=== PATIENT | female | born 1940 | race Caucasian/White ===

== ENCOUNTER 2019-07-14 06:37 | Day surgery (SDC) | payer MEDICARE ==
[~2019-07-14] VITALS: Ht 170.2 cm; Wt 68.7 kg
[2019-07-14] VITALS (13 sets, daily range): BP systolic 156–189; BP diastolic 66–81
[~2019-07-14 06:37] MED LIST: ASPI-1265 PO; ATOR80TA PO; CALC-499 PO; CLOP75TA15 PO; FLUO20CA39 PO; FURO40TA4 PO; MEMA10TA PO; OMEP-297 PO; VALS320T2 PO
[2019-07-14] MEDS ORDERED: DOXA4TAB2 PO (07:09)
[2019-07-14] MEDS ORDERED: [UNRECOGNIZED DRUG - OTHER] PO (07:10)
[2019-07-14] MEDS ORDERED: normal saline 1000ml 1,000 ML IV SCH ×2 (07:20→09:59)
[2019-07-14 07:57] LABS: BASOPHILS % (AUTO) 0.5 % (0-1); EOSINOPHILS # (AUTO) 0.3 X10'3 (0-0.9); EOSINOPHILS % (AUTO) 3.7 % (0-6); HEMATOCRIT 38.3 % (35.0-45.0); HEMOGLOBIN 13.1 g/dl (12.0-16.0); LYMPHOCYTES # (AUTO) 1.2 X10'3 (1.1-4.8); LYMPHOCYTES % (AUTO) 15.8 % (21-51); MEAN CORPUSCULAR HEMOGLOBIN 32.6 PG (27.0-31.0); MEAN CORPUSCULAR HGB CONC 34.1 g/dL (33.0-36.5); MEAN CORPUSCULAR VOLUME 95.4 FL (78-98); MEAN PLATELET VOLUME 7.6 FL (7.4-10.4); MONOCYTES # (AUTO) 0.5 X10'3 (0-0.9); MONOCYTES % (AUTO) 6.3 % (2-12); NEUTROPHILS # (AUTO) 5.7 X10'3 (1.8-7.7); NEUTROPHILS % (AUTO) 73.7 % (42-75); PLATELET COUNT 195 X10'3 (140-440); RED BLOOD COUNT 4.01 X10'6 (4.20-5.60); RED CELL DISTRIBUTION WIDTH 14.4 % (11.5-14.5); WHITE BLOOD COUNT 7.8 X10'3 (4.5-11.0)
[2019-07-14 08:13] LABS: ALANINE AMINOTRANSFERASE 26 U/L (12-78); ALBUMIN 3.5 G/DL (3.4-5.0); ALBUMIN/GLOBULIN RATIO 1.2 (1.1-1.5); ALKALINE PHOSPHATASE 93 IU/L (46-116); ANION GAP 9 (8-16); ASPARTATE AMINO TRANSFERASE 24 U/L (10-37); BILIRUBIN,TOTAL 0.6 MG/DL (0.1-1.0); BLOOD UREA NITROGEN 21 MG/DL (7-18); BUN/CREATININE RATIO 18.4 (6.6-38.0); CALCIUM 10.2 MG/DL (8.5-10.1); CHLORIDE 108 MMOL/L (99-107); CREATININE 1.14 MG/DL (0.40-0.90); GLUCOSE 97 MG/DL (70-104); POTASSIUM 3.3 MMOL/L (3.5-5.1); SODIUM 145 MMOL/L (135-145); TOTAL CARBON DIOXIDE 27.8 MMOL/L (24-32); TOTAL PROTEIN 6.5 G/DL (6.4-8.2); eGFR 46 ML/MIN
[2019-07-14] MEDS ORDERED: heparin 1,000 UNITS/NS 500ml 500 ML ICATH ONE (08:15)
[2019-07-14] MEDS ORDERED: fentaNYL/PF 50MCG/1 ML 2ML syringe IV PRN (08:15)
[2019-07-14] MEDS ORDERED: midazolam 2 mg/2 ml injection IV PRN (08:15)
[2019-07-14] MEDS ORDERED: LIDOcaine 1%/PF 5ML 10 MG/ML VIAL SQ ONE (08:15)
[2019-07-14] MEDS ORDERED: heparin 1,000 UNITS/NS 500ml 500 ML ONE (08:18)
[2019-07-14] MEDS ORDERED: fentaNYL/PF 50MCG/1 ML 2ML syringe ONE ×2 (08:18→08:45)
[2019-07-14] MEDS ORDERED: midazolam 2 mg/2 ml injection ONE ×2 (08:18→08:45)
[2019-07-14] MEDS ORDERED: LIDOcaine 1%/PF 5ML 10 MG/ML VIAL ONE (08:18)
[2019-07-14] MEDS ORDERED: iohexol 300mg/ml 100ml inj. ONE (08:19)
[2019-07-14] MEDS ORDERED: heparin 1,000unit/ml 10ml vial 10 ML ONE (09:05)
[2019-07-14] MEDS ORDERED: losartan 50mg tablet PO ONE (13:05)
[2019-07-15] MEDS ORDERED: losartan 50mg tablet PO SCH (08:00)
== END 2019-07-14 16:00 | disposition home or self-care (01) ==
LOC: SSTAY O 06:37
PROVIDERS: ATTEND Radiology Diagnostic Radiology
DX: K55.1 Chronic vascular disorders of intestine (principal); I10 Essential (primary) hypertension; Z86.73 Personal history of transient ischemic attack (TIA), and cerebral infarction without residual deficits; Z85.828 Personal history of other malignant neoplasm of skin; Z90.710 Acquired absence of both cervix and uterus; Z90.49 Acquired absence of other specified parts of digestive tract; Z95.5 Presence of coronary angioplasty implant and graft; Z98.1 Arthrodesis status; Z87.891 Personal history of nicotine dependence; Z88.1 Allergy status to other antibiotic agents; Z91.09 Other allergy status, other than to drugs and biological substances; Z88.5 Allergy status to narcotic agent; Z91.040 Latex allergy status; Z79.01 Long term (current) use of anticoagulants; Z79.899 Other long term (current) drug therapy
CPT/HCPCS: 36245; 36415; 37236; 75726; 80053; 85025; 85610; 99152; 99153; C1725; C1769; C1876; C1894; J1644; J2250; J3010; J7030; Q9967

== ENCOUNTER 2019-08-26 11:33 | Inpatient (IN) | payer MEDICARE ==
[2019-08-17 17:02] LABS: BASOPHILS # (AUTO) 0.1 X10'3 (0-0.2); BASOPHILS % (AUTO) 0.8 % (0-1); EOSINOPHILS # (AUTO) 0.3 X10'3 (0-0.9); EOSINOPHILS % (AUTO) 3.5 % (0-6); LYMPHOCYTES # (AUTO) 1.9 X10'3 (1.1-4.8); LYMPHOCYTES % (AUTO) 23.9 % (21-51); MEAN CORPUSCULAR HEMOGLOBIN 32.9 PG (27.0-31.0); MEAN CORPUSCULAR HGB CONC 33.9 g/dL (33.0-36.5); MEAN CORPUSCULAR VOLUME 97.2 FL (78-98); MEAN PLATELET VOLUME 8.4 FL (7.4-10.4); MONOCYTES # (AUTO) 0.6 X10'3 (0-0.9); NEUTROPHILS # (AUTO) 5.3 X10'3 (1.8-7.7); NEUTROPHILS % (AUTO) 64.8 % (42-75); PRE OP HEMATOCRIT 37.7 % (35.0-45.0); PRE OP HEMOGLOBIN 12.8 g/dL (12.0-16.0); PRE OP PLATELET COUNT 195 X10'3 (140-440); RED BLOOD COUNT 3.88 X10'6 (4.20-5.60)
[2019-08-17 17:11] LABS: PRE OP INR 1.1 INR; PRE OP PROTIME 10.9 SECONDS (9.0-12.0)
[2019-08-17 17:13] LABS: ALBUMIN 3.5 G/DL (3.4-5.0); ALBUMIN/GLOBULIN RATIO 1.2 (1.1-1.5); ALKALINE PHOSPHATASE 107 IU/L (46-116); BLOOD UREA NITROGEN 24 MG/DL (7-18); BUN/CREATININE RATIO 17.1 (6.6-38.0); CALCIUM 9.9 MG/DL (8.5-10.1); CHLORIDE 110 MMOL/L (99-107); PRE OP ALT 26 U/L (30-65); PRE OP ANION GAP 7 (8-16); PRE OP AST 19 U/L (10-37); PRE OP BILIRUB, TOTAL 0.4 MG/DL (0.0-1.0); PRE OP GLUCOSE 105 MG/DL (70-104); PRE OP POTASSIUM 3.5 MMOL/L (3.4-5.1); PRE OP SODIUM 144 MMOL/L (135-145); TOTAL CARBON DIOXIDE 27.3 MMOL/L (24-32); TOTAL PROTEIN 6.4 G/DL (6.4-8.2); eGFR 36 ML/MIN
[2019-08-17 17:38] LABS: CLARITY,URINE SLIGHTLY CLOUDY (Clear); COLOR,URINE YELLOW (Yellow); GLUCOSE, URINE NEGATIVE (Neg); KETONES,URINE NEGATIVE (Neg); LEUKOCYTE ESTERASE ,URINE NEGATIVE (Neg); NITRITES, URINE NEGATIVE (Neg); OCCULT BLOOD,URINE NEGATIVE (Neg); PH,URINE 5.5 (4.8-8.0); PROTEIN,URINE 30 mg/dl (Neg); UROBILINOGEN,URINE 0.2 E.U/dL (0.2-1.0)
[2019-08-17 17:46] LABS: UA COLLECTION TYPE NON-SPECIFIED
[2019-08-17 17:47] LABS: MUCUS STRANDS MODERATE /LPF (Neg); SQUAMOUS EPITHELIAL CELL,UR FEW /LPF (FEW)
[2019-08-17 17:48] LABS: BACTERIA,URINE 1+ /HPF (Neg); CAL OXALATE CRYSTALS 4+ /HPF (NEGATIVE); RBC,URINE 0-2 /HPF (0-2); WBC,URINE 0-4 /HPF (0-4)
[~2019-08-26] VITALS: Ht 170.2 cm; Wt 66.1 kg
[2019-08-26] VITALS (10 sets, daily range): BP systolic 137–162; BP diastolic 72–92
[~2019-08-26 11:33] MED LIST changes: +AMLO5TAB PO; -CALC-499 PO; +DOXA4TAB2 PO; +DULO20CA50 PO; -FLUO20CA39 PO; +LACT1CAP65 PO; +LOSA100T57 PO; -OMEP-297 PO; +OMEP20CA15 PO; +POTA10TA PO; +RIVA4.5C5 PO; -VALS320T2 PO; +VANCOMYCIN INJ 1000 MG in NORMAL SALINE 250ml IV.SOLN IV ONE; +cefazolin/dext.iso 2gm/100ml 100 ML IV ONE; +famotidine 10mg tablet PO ONE; +ringers solution, lacted 1,000 ML IV SCH
[2019-08-26] MEDS ORDERED: dexamethasone sod phosphate 10mg/ml inj ONE (12:56)
[2019-08-26] MEDS ORDERED: sevoflurane 250ml liquid IH ONE (12:56)
[2019-08-26] MEDS ORDERED: fentaNYL/PF 50MCG/1 ML 2ML syringe ONE (13:04)
[2019-08-26] MEDS ORDERED: propofol inj 20 ML IV ONE (13:11)
[2019-08-26] MEDS ORDERED: LIDOcaine 2% (20mg/ml) 5ml vial ONE (13:11)
[2019-08-26] MEDS ORDERED: ondansetron/PF 4mg/2ml inj ONE (13:11)
[2019-08-26] MEDS ORDERED: midazolam 2 mg/2 ml injection ONE (13:11)
[2019-08-26] MEDS ORDERED: ringers solution, lacted 1,000 ML IV SCH (13:42)
[2019-08-26] MEDS ORDERED: enalaprilat dihydrate 2.5mg/2ml vial IV PRN (13:45)
[2019-08-26] MEDS ORDERED: hydrALAZINE 20mg/ml inj. IV PRN (13:45)
[2019-08-26] MEDS ORDERED: morphine 4 MG/ML inj SYRINge IV PRN ×2 (13:45)
[2019-08-26] MEDS ORDERED: ondansetron/PF 4mg/2ml inj IV PRN (13:45)
[2019-08-26] MEDS ORDERED: fentaNYL/PF 50MCG/1 ML 2ML syringe IV PRN ×2 (13:45)
[2019-08-26] MEDS ORDERED: BUPIVAcaine/PF 2.5 mg/ml (0.25%) 30ml vial ONE (13:51)
[2019-08-26] MEDS ORDERED: hydrALAZINE 20mg/ml inj. IV ONE (14:29)
--- NOTE | 2019-08-26 14:55 | NUR ---
Received from OR via BED , accompanied by Anesthesiologist DR COTE and report given by Anesthesiolgist. PATIENT WAKING UP, DENIES PAIN, V/S WNL, NEUROVASCULAR CHECKS INTACT, 20G PIV LUE , DRESSING TO RIGHT HIP CDI W/ COLD POWDER PACK
--- NOTE | 2019-08-26 16:05 | NUR ---
PATIENT AWAKE AND ORIENTED, DENIES PAIN, V/S WNL, NEUROVASCULAR CHECKS INTACT, 20G PIV LUE D/C, SCD OFF, DRESSING TO RIGHT HIP CDI WITH ICEBAG APPLIED. I HAVE REVIEWED D/C INSTRUCTIONS WITH PATIENT AND FAMILY AND THEY HAVE VERBALIZED UNDERSTANDING. PATIENT D/C HOME WITH ALL BELONGINGS AND FAMILY GAVE TRANSPORT HOME.
== END 2019-08-26 16:05 | disposition home or self-care (01) | DRG 465 ==
LOC: PAS IN 11:33 → EDSTATUS 15:45
PROVIDERS: ADMIT Orthopaedic Surgery; ATTEND Orthopaedic Surgery
PROC: 0JBL0ZZ Excision of Right Upper Leg Subcutaneous Tissue and Fascia, Open Approach (ICD-10-PCS; principal; 2019-08-26 12:56)
DX: M61.58 Other ossification of muscle, other site (principal); S70.251A Superficial foreign body, right hip, initial encounter; G47.30 Sleep apnea, unspecified; J43.9 Emphysema, unspecified; F32.9 Major depressive disorder, single episode, unspecified; K21.9 Gastro-esophageal reflux disease without esophagitis; M16.0 Bilateral primary osteoarthritis of hip; X58.XXXA Exposure to other specified factors, initial encounter; F03.90 Unspecified dementia, unspecified severity, without behavioral disturbance, psychotic disturbance, mood disturbance, and anxiety; I73.9 Peripheral vascular disease, unspecified; E78.5 Hyperlipidemia, unspecified; I12.9 Hypertensive chronic kidney disease with stage 1 through stage 4 chronic kidney disease, or unspecified chronic kidney disease; N18.9 Chronic kidney disease, unspecified; Z88.5 Allergy status to narcotic agent; Z88.8 Allergy status to other drugs, medicaments and biological substances; Y93.89 Activity, other specified; Y92.89 Other specified places as the place of occurrence of the external cause; Y99.8 Other external cause status; Z91.040 Latex allergy status; Z87.891 Personal history of nicotine dependence
CPT/HCPCS: 36415; 71046; 73502; 76000; 80053; 81001; 82948; 85025; 85610; 85730; 87081; 93005; A4618; A6250; A6454; A7000; J0360; J1100; J2001; J2250; J2270; J2405; J2704; J3010; J3370; J3490; J7120